=== PATIENT | male | born 1960 | race Caucasian/White ===

== ENCOUNTER 2017-02-22 18:45 | Emergency (ER) | payer SELFPAY ==
[~2017-02-22] VITALS: Ht 172.7 cm; Wt 82.6 kg
[2017-02-22] MEDS ORDERED: ONDANSETRON PF 4 MG/2 ML VIAL. ONE (19:46)
[2017-02-22] MEDS ORDERED: IV NORMAL SALINE 1000ML BAG 1,000 ML IV ONE ×3 (20:00→23:30)
[2017-02-22] MEDS ORDERED: ONDANSETRON PF 4 MG/2 ML VIAL. IV ONE (20:00)
[2017-02-22 20:03] LABS: BILIRUBIN,URINE SMALL (NEG); GLUCOSE,URINE NEGATIVE (NEG); NITRITE,URINE NEGATIVE (NEG); PROTEIN,URINE 30 mg/dL (NEG-TRACE); UROBILINOGEN,URINE 0.2 mg/dL (0.2 mg/dL)
[2017-02-22 20:05] LABS: BASO % 0 % (0-3); EOS % 1 % (0-3); HEMATOCRIT 57.8 % (39.0-53.0); HEMOGLOBIN 19.1 g/dL (13.0-17.5); LYMPH # 0.8 x10^3/uL (1.0-4.8); LYMPH % 3 % (24-48); MEAN CORPUSCULAR HEMOGLOBIN 32 pg (25-35); MEAN CORPUSCULAR HGB CONC 33 g/dL (31-37); MEAN CORPUSCULAR VOLUME 96 fL (79-100); MONO % 2 % (0-9); NEUT % 94 % (31-73); PLATELET COUNT 278 x10^3/uL (140-400); RED BLOOD COUNT 6.01 x10^6/uL (4.30-5.70); RED CELL DISTRIBUTION WIDTH 14.2 % (11.5-14.5); WHITE BLOOD COUNT 22.6 x10^3/uL (4.0-11.0)
[2017-02-22 20:15] LABS: BACTERIA,URINE FEW /HPF (0-FEW); RBC,URINE OCC /HPF (0-2); SQUAMOUS EPITHELIAL CELL,UR FEW /LPF; WBC,URINE OCC /HPF (0-4)
[2017-02-22 20:35] LABS: % EOS 1 % (0-5)
[2017-02-22 20:36] LABS: PLT ESTIMATE ADEQUATE (ADEQUATE)
[2017-02-22 20:49] LABS: CALCIUM 9.4 mg/dL (8.5-10.1); CREATININE 1.4 mg/dL (0.7-1.3); GFR 52.4; POTASSIUM 5.4 mmol/L (3.5-5.1)
[2017-02-22 20:54] LABS: ALBUMIN 4.6 g/dL (3.4-5.0); ALBUMIN/GLOBULIN RATIO 1.3 (1.0-1.7); TOTAL BILIRUBIN 0.6 mg/dL (0.2-1.0); TOTAL PROTEIN 8.2 g/dL (6.4-8.2)
--- NOTE | 2017-02-22 22:11 | RAD ---
Abdominal and Pelvis CT, Without Contrast: History: Leukocytosis and abdominal pain. Comparison: None. Procedure: Axial images are obtained of the abdomen and pelvis, without IV or oral contrast. CT Abdomen without Contrast: Findings: Evaluation of solid organs is limited without contrast. Evaluation of stomach and bowel is limited without oral contrast. Liver: Normal. Spleen: Normal. Pancreas: Normal. Adrenal Glands: Normal. Kidneys: Perinephric stranding bilaterally. No stones or hydronephrosis. There is no free air or free fluid. There is no lymphadenopathy. Impression: Please see CT Pelvis without Contrast. End Impression. CT Pelvis without Contrast: Findings: The urinary bladder appears normal. There is no free fluid. There is no lymphadenopathy. There is no pericolonic inflammation identified. The appendix is normal. Impression: Perinephric stranding bilaterally is likely chronic. There is no radiopaque stones or obstructive uropathy. No acute findings. End impression PQRS Compliance Statement: One or more of the following individualized dose reduction techniques were utilized for this examination: 1. Automated exposure control 2. Adjustment of the mA and/or kV according to patient size 3. Use of iterative reconstruction technique Electronically signed by: Jimmy White III, MD (02/22/2017 10:08 PM) [facility]
[2017-02-22] MEDS ORDERED: ONDA4TAB10 SL (23:21)
--- NOTE | 2017-02-22 23:21 | PHYS DOC ---
Past Medical History Past Medical History: GERD, High Cholesterol, Hypertension Past Surgical History: Other Additional Past Surgical Histo: KNEE Alcohol Use: None Drug Use: None Adult General Chief Complaint Chief Complaint: ABDOMINAL PAIN HPI HPI Patient is a 57 year old gentleman who presents here today secondary to nausea vomiting diarrhea. Patient reports symptoms started earlier this morning and she 's been having vomiting and diarrhea almost every 10 minutes. Patient has any abdominal pain. Patient has any fevers shakes chills. Patient has any cough cold or rhinorrhea. Patient denies any sore throat or ear pain. Patient has a dysuria frequency or urgency. Patient denies any chest discomfort. Patient denies any melena or bright red blood per rectum. Patient denies any hematemesis or coffee-ground emesis. Patient reports she's been unable keep any solids or liquids down throughout the majority of the day. Patient with history significant for hypertension. Patient denies any diabetes liver kidney or lung problems. Patient has had no abdominal surgeries in the past. Patient reports she smokes approximately half a pack per day of cigarettes. Patient does not have any alcohol or drug use. Patient is allergic to any medications. Review of systems Constitutional: Denies fever or chills Eyes: Denies change in visual acuity, redness, or eye pain All other review systems are negative except as documented in the history of present illness portion. Physical exam Constitutional: Well developed, well nourished, no acute distress, non-toxic appearance. HENT: Normocephalic, atraumatic, bilateral external ears normal, oropharynx moist, no oral exudates, nose normal. Eyes: conjunctiva normal, no discharge. Neck: Normal range of motion, no tenderness, supple, no stridor. Cardiovascular:Heart rate regular rhythm, Lungs & Thorax: Bilateral breath sounds clear to auscultation Abdomen: Bowel sounds normal, soft, no tenderness, no masses, no pulsatile masses. Skin: Warm, dry, Back: No tenderness, Extremities: No tenderness, no cyanosis, Neurologic: Alert and oriented X 3, normal motor function, normal sensory function, no focal deficits noted. Psychologic: Affect normal, judgement normal, mood normal. Patient's ER physical exam is significant for a 57-year-old gentleman who appears uncomfortable secondary to his nausea. Patient's abdomen was soft nontender no rebound or guarding. Patient has normal active bowel sounds. Patient does not present with any signs or symptoms of be consistent or concerning for an acute surgical abdomen. Patient's because membranes are dry. Patient's skin turgor is within normal limits. Patient has axillary sweat. Patient's skin was cool and clammy. Assessment and plan 1. Nausea vomiting diarrhea. Patient's symptoms are consistent with either a viral gastritis versus food poisoning. Etiology is impossible to determine the ED. In the ER the patient was given Zofran 2 L of normal saline. After the first liter of normal saline the patient feels 100% improved. The patient is reportedly looking much better per the as well. The patient is currently sitting up laughing joking and kidding around with me and his about different subjects. This is completely different when he first arrived. Patient does look 100% improved objectively. Patient still denies any abdominal pain whatsoever. Patient reports she feels very comfortable with the plan to be discharged home. I have discussed with the patient his elevated white count and I feel that this is most likely secondary to hemoconcentration given his elevated hemoglobin as well. Patient is CT scan of his abdomen pelvis which was unremarkable. There is no evidence of any acute catastrophic abnormalities of this CT of the abdomen. Plan will be to give him an additional 1 L of normal saline to keep his hydration optimized and we will send him home with Zofran. 2. Tobacco cessation. I long conversation approximately 20 minutes with the patient and his regarding different options for stopping tobacco. Patient reports we will try to initiate tobacco cessation today. Current Medications Current Medications Current Medications Medications (Trade) Dose Ordered Sig/Nara Start Time Stop Time Status Last Admin Dose Admin Ondansetron HCl (Zofran) 4 mg 1X ONCE 02/22/17 20:00 02/22/17 20:39 DC 02/22/17 20:00 4 MG Sodium Chloride 1,000 ml @ 1,000 mls/hr 1X ONCE 02/22/17 23:15 02/23/17 00:14 UNV Allergies Allergies Allergies Coded Allergies Type Severity Reaction Last Updated Verified No Known Drug Allergies 02/22/17 No Current Patient Data Vital Signs Vital Signs Date Time Temp Pulse Resp B/P (MAP) Pulse Ox O2 Delivery O2 Flow Rate FiO2 02/22/17 19:10 98.2 104 20 142/71 (94) 96 Room Air 98.2 Lab Values Laboratory Tests Test 02/22/17 18:56 02/22/17 19:15 02/22/17 20:20 Urine Collection Type Unknown Urine Color Adina Urine Clarity Clear Urine pH 5.0 Urine Specific [place] >=1.030 Urine Protein 30 mg/dL (NEG-TRACE) Urine Glucose (UA) Negative mg/dL (NEG) Urine Ketones (Stick) Negative mg/dL (NEG) Urine Blood Negative (NEG) Urine Nitrite Negative (NEG) Urine Bilirubin Small (NEG) Urine Urobilinogen Dipstick 0.2 mg/dL (0.2 mg/dL) Urine Leukocyte Esterase Negative (NEG) Urine RBC Occ /HPF (0-2) Urine WBC Occ /HPF (0-4) Urine Squamous Epithelial Cells Few /LPF Urine Bacteria Few /HPF (0-FEW) Urine Hyaline Casts Many /HPF Urine Granular Casts Few /HPF Urine Mucus Marked /LPF White Blood Count 22.6 x10^3/uL (4.0-11.0) H Red Blood Count 6.01 x10^6/uL (4.30-5.70) H Hemoglobin 19.1 g/dL (13.0-17.5) H Hematocrit 57.8 % (39.0-53.0) H Mean Corpuscular Volume 96 fL (79-100) Mean Corpuscular Hemoglobin 32 pg (25-35) Mean Corpuscular Hemoglobin Concent 33 g/dL (31-37) Red Cell Distribution Width 14.2 % (11.5-14.5) Platelet Count 278 x10^3/uL (140-400) Neutrophils (%) (Auto) 94 % (31-73) H Lymphocytes (%) (Auto) 3 % (24-48) L Monocytes (%) (Auto) 2 % (0-9) Eosinophils (%) (Auto) 1 % (0-3) Basophils (%) (Auto) 0 % (0-3) Neutrophils # (Auto) 21.3 x10^3uL (1.8-7.7) H Lymphocytes # (Auto) 0.8 x10^3/uL (1.0-4.8) L Monocytes # (Auto) 0.4 x10^3/uL (0.0-1.1) Eosinophils # (Auto) 0.1 x10^3/uL (0.0-0.7) Basophils # (Auto) 0.0 x10^3/uL (0.0-0.2) Segmented Neutrophils % 65 % (35-66) Band Neutrophils % 22 % (0-9) H Lymphocytes % 8 % (24-48) L Monocytes % 4 % (0-10) Eosinophils % 1 % (0-5) Platelet Estimate Adequate (ADEQUATE) Sodium Level 141 mmol/L (136-145) Potassium Level 5.4 mmol/L (3.5-5.1) H Chloride Level 106 mmol/L (98-107) Carbon Dioxide Level 22 mmol/L (21-32) Anion Gap 13 (6-14) Blood Urea Nitrogen 22 mg/dL (8-26) Creatinine 1.4 mg/dL (0.7-1.3) H Estimated GFR (Cockcroft-Gault) 52.4 BUN/Creatinine Ratio 16 (6-20) Glucose Level 115 mg/dL (70-99) H Calcium Level 9.4 mg/dL (8.5-10.1) Total Bilirubin 0.6 mg/dL (0.2-1.0) Aspartate Amino Transferase (AST) 28 U/L (15-37) Alanine Aminotransferase (ALT) 39 U/L (16-63) Alkaline Phosphatase 100 U/L (46-116) Troponin I Quantitative < 0.017 ng/mL (0.000-0.055) Total Protein 8.2 g/dL (6.4-8.2) Albumin 4.6 g/dL (3.4-5.0) Albumin/Globulin Ratio 1.3 (1.0-1.7) Lipase 239 U/L (73-393) Laboratory Tests 02/22/17 19:15 Laboratory Tests 02/22/17 20:20 EKG EKG [] Radiology/Procedures Radiology/Procedures [] Course & Med Decision Making Course & Med Decision Making Pertinent Labs and Imaging studies reviewed. (See chart for details) [] Dragon Disclaimer Dragon Disclaimer This electronic medical record was generated, in whole or in part, using a voice recognition dictation system. Departure Departure Impression: Primary Impression: Dehydration Additional Impression: Nausea vomiting and diarrhea Disposition: HOME, SELF-CARE Condition: IMPROVED Referrals: GEO GUTIERREZ (PCP) Patient Instructions: Dehydration, Adult, Diarrhea, Nausea and Vomiting, Smoking Cessation Scripts Ondansetron (ZOFRAN ODT) 4 Mg Tab.rapdis 1 TAB SL Q6HRS Y for NAUSEA, #12 TAB Prov: HERB CHANCE MD 02/22/17 Problem Qualifiers HERB CHANCE MD Feb 22, 2017 23:21
[2017-02-23 00:22] VITALS: BP 114/79
--- NOTE | 2017-02-23 10:09 | EKG ---
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
== END 2017-02-23 00:15 | disposition home or self-care (01) ==
LOC: ER 18:45
DX: E86.0 Dehydration (principal); R11.2 Nausea with vomiting, unspecified; R19.7 Diarrhea, unspecified; K21.9 Gastro-esophageal reflux disease without esophagitis; E78.00 Pure hypercholesterolemia, unspecified; I10 Essential (primary) hypertension; F17.210 Nicotine dependence, cigarettes, uncomplicated
CPT/HCPCS: 36415; 74176; 80053; 81001; 83690; 84484; 85007; 85025; 93005; 96361; 96374; 99285; J2405; J7030